=== PATIENT | male | born 1960 | race Caucasian/White ===

== ENCOUNTER 2022-09-22 11:44 | Inpatient (IN) | payer OTHER, SELFPAY ==
[2022-09-22] VITALS (31 sets, daily range): BP systolic 152–186; BP diastolic 86–108; PULSE 81–116; RESP 12–29; TEMP 37.2; O2SAT 90–100
--- NOTE | ~2022-09-22 | CT_ITS ---
EXAMINATION: CT chest abdomen pelvis w con DATE: 09/23/2022 20:45 INDICATION: Brain mass. TECHNIQUE: Computed tomography (CT) of the chest, abdomen, and pelvis was performed with 100 mL Omnip aque 350 intravenous contrast. Automated exposure control and iterative reconstruction technique were employed. The dose-length product was 1266.73 mGy-cm. COMPARISON: CT abdomen and pelvis 05/24/2014 FINDINGS: CHEST CT: The lungs demonstrate mild atelectasis. There is marked elevation of right hemidiaphragm. No pleural effusion. The heart size is normal. No pericardial effusion. There is mild thoracic spondylosis. ABDOMEN/PELVIS CT: There are cysts in the liver measuring up to 2.0 cm. There is diffuse hepatic steatosis. The gallblad rosalind, spleen, pancreas, and adrenal glands are normal. There is cortical thinning of the kidneys. Ther e are cysts in the kidneys measuring up to 5 mm on the left. There is a 2 mm stone in right kidney. T here are 6 mm and 2 mm stones in left kidney. The prostate is moderately enlarged. There are brachyth erapy seeds in the prostate. There is diverticulosis of the colon without evidence of diverticulitis. The appendix is not visualized. There are no dilated loops of bowel. There are no pathologically enl arged lymph nodes. There is no free intraperitoneal fluid. There is mild lumbar spondylosis. IMPRESSION: 1. Moderately enlarged prostate with brachytherapy seeds. Reviewed, dictated and finalized at location A. IX INSPECTOR
--- NOTE | ~2022-09-22 | XR_ITS ---
EXAMINATION: XR chest 1V portable DATE: 09/22/2022 13:42 INDICATION: Left hemiparesis. TECHNIQUE: A single frontal view of the chest was obtained. COMPARISON: CT abdomen and pelvis 05/24/2014 FINDINGS: There is mild atelectasis in the lower lung zones. No pleural effusion or pneumothorax. The heart size is normal. IMPRESSION: 1. Mild atelectasis in the lower lung zones. Reviewed, dictated and finalized at location A. UETTE COACH
--- NOTE | ~2022-09-22 | MR_ITS ---
EXAMINATION: MR brain/brain stem wo/w con DATE: 09/23/2022 17:03 INDICATION: Brain mass. TECHNIQUE: Magnetic resonance imaging (MRI) of the brain and brainstem was performed without and with 20 mL MultiHance intravenous contrast. COMPARISON: Head CT 09/22/2021 FINDINGS: Centered in the right parietal lobe, there is a 5.8 x 5.1 cm peripherally enhancing mass wi th small areas of blood products and surrounding vasogenic edema. There is no acute ischemic infarct. There is 8 mm leftward midline shift. The ventricles are not enlarged. The orbits are normal. The pa ranasal sinuses are clear. The mastoid air cells are normal. IMPRESSION: 1. 5.8 cm mass centered in right parietal lobe, which may be glioblastoma or less likely metastatic d isease. 2. 8 mm leftward midline shift. Reviewed, dictated and finalized at location A. LE FINANCIALS CONSULTANT IMPRESSION: 1. 5.8 cm mass centered in right parietal lobe, which may be glioblastoma or le ss likely metastatic disease. 2. 8 mm leftward midline shift.
--- NOTE | ~2022-09-22 | CT_ITS ---
EXAMINATION: CT brain wo con DATE: 09/22/2022 13:42 INDICATION: Left-sided weakness, facial droop TECHNIQUE: Computed tomography (CT) of the head was performed without intravenous contrast. The mA wa s adjusted according to patient size. Iterative reconstruction technique was employed. Exam dose: 68 1.00 mGy-cm total exam DLP. COMPARISON: None FINDINGS: There is a large likely centrally necrotic soft tissue mass measuring up to approximately 5 x 6.3 cm dimension in the right temporal parietal area with surrounding edema, with prominent efface ment of the right lateral ventricle and approximately 5 mm leftward midline shift. Primary brain palma gnancy is considered most likely. No other brain mass lesion is noted. No intracranial hemorrhage. No subdural or epidural hematoma. The orbits are intact. No fracture or bone destruction of the cranial vault. The mastoid air cells and paranasal sinuses are normally developed and aerated. IMPRESSION: Large irregular likely centrally necrotic right temporal parietal mass with surrounding edema, effacement of the right cerebral sulci and lateral right ventricle and up to 5 mm leftward mid line shift. The findings are most suggestive for primary malignant brain neoplasm Reviewed, dictated and finalized at Location A. Reviewed, dictated and finalized at location A. EDITATION MANAGER IMPRESSION: Large irregular likely centrally necrotic right temporal parietal mass with surrounding edema, effacement of the right cerebral sulci and lateral right ventricle and up to 5 mm leftward midline shift. The findings are most s uggestive for primary malignant brain neoplasm
--- NOTE | 2022-09-22 12:03 | ECG_ITS ---
Measurements Intervals [place] Rate: 112 P: 28 VA: 147 QRS: -59 QRSD: 100 T: 62 QT: 313 QTc: 427 Interpretive Statements SINUS TACHYCARDIA LEFT AXIS DEVIATION POOR R WAVE PROGRESSION, ANTERIOR LEADS INFERIOR INFARCT, AGE INDETERMINATE BORDERLINE ST-T WAVE ABNORMALITY- HIGH LATERAL LEADS BASELINE ARTIFACT- I, III, AVR, AVL, AVF, V6 ABNORMAL ECG NO PREVIOUS ECG AVAILABLE FOR COMPARISON Electronically Signed On 09-22-2022 15:50:09 BUILD TECHNICIAN by Deniz Azul D.O.
[2022-09-22 12:49] LABS: Basophils Percent Auto 0.4 % (0.2-1.2); Eosinophils Percent Auto 0.5 % (0-4.4); Hematocrit 45.5 % (42.0-52.0); Hemoglobin 15.8 g/dL (14.0-18.0); Immature Granulocyte Absolute 0.02 K/mm3 (0.00-0.031); Immature Granulocyte Percent A 0.3 % (0-0.5); Lymphocytes Absolute Auto 1.91 K/mm3 (0.9-3.2); Lymphocytes Percent Auto 24.1 % (18.3-44.2); Mean Corpuscular HGB Conc 34.7 g/dl (32-36); Mean Corpuscular Hemoglobin 28.9 pg (26-34); Mean Corpuscular Volume 83.2 fl (80-100); Mean Platelet Volume 9.3 fl (7.4-10.4); Monocytes Absolute Auto 0.6 K/mm3 (0.1-0.6); Monocytes Percent Auto 7.6 % (2.6-8.5); Neutrophils Absolute Auto 5.3 K/mm3 (1.3-6.7); Neutrophils Percent Auto 67.1 % (45.5-73.1); Platelet Count Result 310 k/mm3 (150-375); Red Blood Count 5.47 M/mm3 (4.6-6.20); Red Cell Distribution Width 14.2 % (11.5-14.5); White Blood Count 7.9 K/mm3 (4.5-10.0)
[2022-09-22 13:02] LABS: Alanine Aminotransferase 24 U/L (6-50); Albumin Level 4.8 g/dL (3.5-5.1); Alkaline Phosphatase 103 U/L (38-126); Anion Gap 15 mmol/L (8-16); Aspartate Amino Transferase 27 U/L (17-59); Bilirubin,Total 0.7 mg/dL (0.2-1.3); Blood Urea Nitrogen 13 mg/dL (9-20); Calcium 9.6 mg/dL (8.4-10.2); Carbon Dioxide 26 mmol/L (22-30); Chloride 99 mmol/L (98-107); Estimated CRCL calculation 100 ml/min; Estimated Glomerular Filt Rate > 60; Glucose 104 mg/dL (65-110); Potassium 3.3 mmol/L (3.4-5.0); Sodium 140 mmol/L (137-145)
[2022-09-22 13:05] LABS: Prothrombin Time 12.8 Seconds (11.1-14.7)
[2022-09-22 13:06] LABS: Partial Thromboplastin Time 26.9 SECONDS (22.3-36.8)
[2022-09-22 13:12] LABS: Troponin I < 0.012 ng/mL (0.000-0.034)
--- NOTE | 2022-09-22 14:33 | ED.NEUROSD ---
HPI - Neuro Symptoms/Deficit General Chief Complaint: Neuro Symptoms/Deficit <Rohan Avila III, DO - Last Filed: 09/22/22 22:12> Stated Complaint: Stroke like symptoms x2 weeks <Rohan Landver STUART, DO - Last Filed: 09/22/22 22:12> Time Seen by Provider: 09/22/22 13:27 <Rohan Avila III, DO - Last Filed: 09/22/22 22:12> History of Present Illness HPI Narrative: Pt presents with left arm weakness for a weak and right sided SERRANO. Pt denies left leg weakness. Pt says he is dropping cup with left hand and is not coordinated. <Rohan Avila III, DO - Last Filed: 09/22/22 22:12> Related Data Home Medications: Home Medications Medication Instructions Recorded Confirmed amlodipine 10 mg tablet 10 mg PO DAILY 09/23/22 09/23/22 valsartan 320 mg tablet 320 mg PO DAILY 09/23/22 09/23/22 <Rohan Avila III, DO - Last Filed: 09/22/22 22:12> Allergies/Adverse Reactions: Allergies Allergy/AdvReac Type Severity Reaction Status Date / Time No Known Allergies Allergy Verified 09/22/22 17:37 <Rohan Landver STUART, DO - Last Filed: 09/22/22 22:12> Review of Systems Review of Systems: All systems reviewed & are unremarkable except as noted in HPI and below <Rohan Landver STUART, DO - Last Filed: 09/22/22 22:12> [facility] Past Medical History Medical History: Medical History (Updated 09/23/22 @ 16:56 by Manohar Salazar M.D.) Hypertension Prostate cancer Treated with radiation <Rohan Landver III, DO - Last Filed: 09/22/22 22:12> Surgical History Surgical History: Surgical History (Updated 09/23/22 @ 13:48 by Rena Dsouza NP) No pertinent past surgical history <Rohan Landver III, DO - Last Filed: 09/22/22 22:12> Family History Family History: Family History (Updated 09/23/22 @ 13:49 by Rena Dsouza NP) Father Prostate carcinoma Mother Hypertension <Rohan Malik Avila III, DO - Last Filed: 09/22/22 22:12> Social History Social History: Social History (Updated 09/23/22 @ 13:56 by Rena Dsouza NP) Social History: The patient is and lives with his . He is originally from [facility]. He speaks broken Comoran He has 2 sons. He works for [employer]. His is the durable power collections attorney for healthcare. The patient is a lifelong nonsmoker. Occasionally has a beer. No marijuana or illicit drugs. Code status full code Smoking status: Never smoker Alcohol intake: never Substance use: never Lack of Transportation: No Lack of Food: Never True Current Housing: I Have Housing Concerned About Future Housing: No Difficulty Paying Gas/Electric Bills: No Difficulty Paying for Meds: No Currently Unemployed: YES Education: Decline to Answer Difficulty w/ Childcare or Family Care: No Spiritual care concerns: No <Rohan Malik Avila III, DO - Last Filed: 09/22/22 22:12> Exam Const: General: healthy appearing and no acute distress <Rohan Malik Avila III, DO - Last Filed: 09/22/22 22:12> Nutritional Appearance: well nourished <Rohan Malik Avila III, DO - Last Filed: 09/22/22 22:12> Orientation/consciousness: patient oriented x3 <Rohan Malik Avila III, DO - Last Filed: 09/22/22 22:12> Limitations: no limitations <Rohan Malik Avila III, DO - Last Filed: 09/22/22 22:12> HENMT: Head: normal to inspection <Rohan Malik Avila III, DO - Last Filed: 09/22/22 22:12> Eyes: Conjunctivae: conjunctivae normal <Rohan Malik Avila III, DO - Last Filed: 09/22/22 22:12> Pupils: Equal, round and reactive pupils present <Rohan Malik Avila III, DO - Last Filed: 09/22/22 22:12> EOM: EOMs intact bilaterally <Rohan Malik Avila III, DO - Last Filed: 09/22/22 22:12> Neck: Neck: normal visual inspection, no lymphadenopathy and no meningeal signs <Rohan Malik Avila III, DO - Last Filed: 09/22/22 22:12> Resp: Effort & Inspection: normal respiratory effort <Rohan Malik Avila III, DO - Last Filed: 1
[2022-09-22 15:00] LABS: SARS-CoV-2 RNA PCR Negative
[2022-09-22] MEDS: levETIRAcetam 500MG/NACL 100ML 500 MG/100 ML BAG 400 MG IVPB (16:45)
--- NOTE | 2022-09-22 20:47 | PC.NURSE ---
called [facility] transfer center for bed status check. Patient is on the wait list but no bed available yet.
[2022-09-23] VITALS (45 sets, daily range): BP systolic 135–177; BP diastolic 76–91; PULSE 71–108; RESP 13–24; TEMP 36.5–36.7; O2SAT 92–98
--- NOTE | 2022-09-23 07:12 | PC.NURSE ---
Report given to TAINA Traylor.
--- NOTE | 2022-09-23 07:28 | PC.NURSE ---
Patient report received from TAINA Velazquez. All questions answered and care of patient assumed. Patient resting in stretcher with eyes closed. Respirations regular and non-labored. VSS. Call-light within reach and at bedside. Awaiting transfer to [place] for neurosurgery. Will contact [facility] transfer line for update.
--- NOTE | 2022-09-23 07:46 | PC.NURSE ---
Spoke to [facility] Capacity Management Department regarding patient transfer. Updated set of VS provided as requested. There are still no available beds. They are hopeful that there will be discharges today. Will update patient, animal care assistant and EDP.
--- NOTE | 2022-09-23 08:56 | PHAR ---
The patient's home meds of Amlodipine 10mg and Valsartan 160mg have been verified.
--- NOTE | 2022-09-23 09:25 | PC.NURSE ---
Dr. Blakely at bedside to assess pt.
[2022-09-23] MEDS: levETIRAcetam 500 MG TABLET PO ×2 (10:50→21:51)
--- NOTE | 2022-09-23 13:18 | ADMGEN ---
This patient, Lennox Solis, was admitted to Medical Room 246-01. Patient/family oriented to hospital policies and general routines including ID bracelet, bed and alarms, visiting hours, pain management, procedures, bathroom and other care routines, personal items, smoking policy, room service/diet, and visiting hours. Information on how to activate the Rapid Response Team has been discussed. Patient/Family are encouraged to report perceived risks to care and to ask questions if they do not understand what they are told or what they should do.
--- NOTE | 2022-09-23 13:35 | PM.IMHP ---
H&P: HPI History of Present Illness Date/Time: 09/23/22 13:35 Chief Complaint: neuro deficit Narrative: This is a 61-year-old male patient who has a history of prostate cancer and hypertension. The patient has a left-sided droop and weakness to left arm. His speech is clear. The patient is awaiting a bed at [facility]. He will need to be evaluated by the neurosurgeon there. It was explained to me that it maybe 3 or 4 days before he can get bed at [facility]. Head CT was read as the followingLarge irregular likely centrally necrotic right temporal parietal mass with surrounding edema, effacement of the right cerebral sulci and lateral right ventricle and up to 5 mm leftward midline shift. The findings are most suggestive for primary malignant brain neoplasm. Per ER noteEmergency Course: ? ? ? discussed with dr willingham who accept for dr leatha govea, said to hold on steroids, can give keppra 500 mg, transfer center will call with bed.? Pt stable awaiting transfer to [place]no bed available at [facility] at this time, will be admitted to our facility until bed availability. The patient was given IV Keppra in the emergency room. The patient is being admitted to inpatient status on the date of service of 09/23/2022. Review of Systems Review of Systems: See HPI All systems reviewed & are unremarkable except as noted in HPI and below Constitutional: Constitutional: Reports as per HPI and Reports no additional constitutional complaints Eyes: Eyes: Reports as per HPI and Reports no additional eye complaints ENT: Reports system reviewed and no additional complaints, except as documented and Reports Normal hearing present Cardiovascular: Cardiovascular: Reports no additional cardiovascular complaints Respiratory: Respiratory: Reports no additional respiratory complaints and Reports no additional respiratory complaints Gastrointestinal: Gastrointestinal: Reports as per HPI and Reports no additional gastrointestinal complaints Musculoskeletal: Musculoskeletal: Reports no additional musculoskeletal complaints Integumentary/Breasts: Skin/Breast: Reports system reviewed and no additional complaints, except as docu and Reports as per HPI Neurologic: Reports system reviewed and no additional complaints, except as documented, Reports as per HPI and Reports Normal hearing present Psychiatric: Psychiatric: Reports no additional psychiatric complaints and Reports as per HPI Endocrine: Endocrine: Reports no additional endocrine complaints Hematologic/Lymphatic: Hematologic/Lymphatic: Reports no additional hematologic/lymphatic complaints Allergic/Immunologic: Allergic/Immunologic: Reports no additional allergic/immunologic complaints PMFSH Past Medical History Medical History (Updated 09/23/22 @ 13:47 by Rena Dsouza NP) Hypertension Prostate cancer Treated with radiation Surgical History Surgical History (Updated 09/23/22 @ 13:48 by Rena Dsouza NP) No pertinent past surgical history Family History Family History (Updated 09/23/22 @ 13:49 by Rena Dsouza NP) Father Prostate carcinoma Mother Hypertension Social History Social History (Updated 09/23/22 @ 13:56 by Rena Dsouza NP) Social History: The patient is and lives with his . He is originally from [facility]. He speaks broken Lithuanian He has 2 sons. He works for [id number]. His is the durable power tax attorney for healthcare. The patient is a lifelong nonsmoker. Occasionally has a beer. No marijuana or illicit drugs. Code status full code Meds Home Medications and Allergies Home Medications Medication Instructions Recorded Confirmed Type amlodipine 10 mg tablet 10 mg PO DAILY 09/23/22 09/23/22 History valsartan 320 mg tablet 320 mg PO DAILY 09/23/22 09/23/22 History Allergies Allergy/AdvReac Type Severity Reaction Status Date / Time No Known Allergies Allergy Verified 09/22/22 17:37 Vital Signs Vital Signs - 2
--- NOTE | 2022-09-23 16:41 | WPDNEUROSGCN ---
Assessment and Plan Assessment and plan (1) Malignant neoplasm of brain: Code(s): C71.9 - Malignant neoplasm of brain, unspecified Status: Acute Plan Assessment: The patient presents at this time with a large right hemispheric centrally necrotic mass. This has the imaging characteristics of a primary glial neoplasm although other malignant lesions cannot be ruled out such as metastatic disease or lymphoma. He has a left upper extremity and left facial paresis. A recommendations: I have recommended he move forward with the MRI of his brain with and without contrast. A CT scan of the chest, abdomen, and pelvis may be useful in ruling out a metastatic lesion. Given the mass effect, I suspect that a craniotomy and resection is going to be indicated. I I also informed him that there is a good chance that medical therapy and radiation therapy may be indicated as well. His just arrived as I am dictating this note and I am going to discuss this with her in detail as well. Apparently, arrangements have been made for a transfer at some point to [facility]. I think this is a reasonable option. After reviewing his MRI of the brain and observing him carefully it may be possible to discharge him home and continue to make arrangements for treatment while he is an outpatient. It may be possible to make arrangements to care for him at a facility where my partners and I can treat him if the patient and his family desire. A 65 minutes were spent in the activities documented in this note. Greater than 50% of the time was spent [id number] with the patient and his . Review of Systems Review of Systems: His review of systems is otherwise unremarkable. He has not had recent problems with fevers, chills, sweats, excessive weight change, chest pain, shortness of breath, abdominal pain, nausea, vomiting, diarrhea, blood in the stool or urine. [facility] Past Medical History Medical History (Updated 09/23/22 @ 16:56 by Manohar Salazar M.D.) Hypertension Prostate cancer Treated with radiation Surgical History Surgical History (Updated 09/23/22 @ 13:48 by Rena Dsouza NP) No pertinent past surgical history Family History Family History (Updated 09/23/22 @ 13:49 by Rena Dsouza NP) Father Prostate carcinoma Mother Hypertension Social History Social History (Updated 09/23/22 @ 13:56 by Rena Dsouza NP) Social History: The patient is and lives with his . He is originally from [facility]. He speaks broken Slovenian He has 2 sons. He works for [employer]. His is the durable power jtac for healthcare. The patient is a lifelong nonsmoker. Occasionally has a beer. No marijuana or illicit drugs. Code status full code Smoking status: Never smoker Alcohol intake: never Substance use: never Lack of Transportation: No Lack of Food: Never True Current Housing: I Have Housing Concerned About Future Housing: No Difficulty Paying Gas/Electric Bills: No Difficulty Paying for Meds: No Currently Unemployed: YES Education: Decline to Answer Difficulty w/ Childcare or Family Care: No Spiritual care concerns: No Meds Home Medications and Allergies Home Medications Medication Instructions Recorded Confirmed Type amlodipine 10 mg tablet 10 mg PO DAILY 09/23/22 09/23/22 History valsartan 320 mg tablet 320 mg PO DAILY 09/23/22 09/23/22 History Allergies Allergy/AdvReac Type Severity Reaction Status Date / Time No Known Allergies Allergy Verified 09/22/22 17:37 Vital Signs Vital Signs - 24 hr 09/22/22 17:05 09/22/22 18:31 09/22/22 22:49 Temperature Pulse Rate 102 H 100 92 Respiratory Rate 18 16 16 Blood Pressure 166/100 H 171/86 H 161/99 H Pulse Oximetry 96 98 97 09/23/22 03:27 09/22/22 23:13 09/22/22 23:15 Temperature Pulse Rate 77 104 H 87 Respiratory Rate 29 H 12 Blood Pressure Pulse Oximetry 09/22/22 23:30 1
[2022-09-23] MEDS: DEXAMETHASONE 4 MG TABLET PO ×3 (17:35→23:48)
[2022-09-23] MEDS: ACETAMINOPHEN 325 MG TABLET 650 MG PO (19:02)
[2022-09-24 05:41] VITALS: BP 131/66; PULSE 87; RESP 18; TEMP 36.9; O2SAT 97
[2022-09-24 05:53] LABS: Alanine Aminotransferase 24 U/L (6-50); Albumin Level 4.5 g/dL (3.5-5.1); Alkaline Phosphatase 84 U/L (38-126); Anion Gap 11 mmol/L (8-16); Aspartate Amino Transferase 31 U/L (17-59); Bilirubin,Total 0.7 mg/dL (0.2-1.3); Blood Urea Nitrogen 16 mg/dL (9-20); Calcium 9.3 mg/dL (8.4-10.2); Carbon Dioxide 25 mmol/L (22-30); Chloride 100 mmol/L (98-107); Estimated CRCL calculation 100 ml/min; Estimated Glomerular Filt Rate > 60; Glucose 139 mg/dL (65-110); Potassium 3.6 mmol/L (3.4-5.0); Sodium 136 mmol/L (137-145)
[2022-09-24 06:17] LABS: Basophils Percent Auto 0.2 % (0.2-1.2); Hemoglobin 15.4 g/dL (14.0-18.0); Immature Granulocyte Absolute 0.02 K/mm3 (0.00-0.031); Immature Granulocyte Percent A 0.4 % (0-0.5); Lymphocytes Absolute Auto 0.72 K/mm3 (0.9-3.2); Lymphocytes Percent Auto 12.8 % (18.3-44.2); Mean Corpuscular HGB Conc 34.2 g/dl (32-36); Mean Corpuscular Hemoglobin 29.4 pg (26-34); Mean Corpuscular Volume 85.9 fl (80-100); Mean Platelet Volume 9.4 fl (7.4-10.4); Monocytes Percent Auto 0.7 % (2.6-8.5); Neutrophils Absolute Auto 4.8 K/mm3 (1.3-6.7); Neutrophils Percent Auto 85.9 % (45.5-73.1); Platelet Count Result 322 k/mm3 (150-375); Red Blood Count 5.24 M/mm3 (4.6-6.20); Red Cell Distribution Width 14.3 % (11.5-14.5); White Blood Count 5.6 K/mm3 (4.5-10.0)
[2022-09-24] MEDS: DEXAMETHASONE 4 MG TABLET PO (06:48)
--- NOTE | 2022-09-24 08:28 | PM.IMPN ---
Progress Note: A&P Assessment and Plan (1) Brain tumor: Code(s): D49.6 - Neoplasm of unspecified behavior of brain Status: Acute Assessment and Plan: Continue Decadron and Keppra per Neurosurgery recommendations, appreciate their consultation and management (2) Left arm weakness: Code(s): R29.898 - Other symptoms and signs involving the musculoskeletal system Status: Acute Assessment and Plan: Stable, unsure if this is due to his chronic pain related to the new brain tumor (3) Hypertension: Code(s): I10 - Essential (primary) hypertension Status: Acute Assessment and Plan: Stable (4) Hepatic steatosis: Code(s): K76.0 - Fatty (change of) liver, not elsewhere classified Status: Acute Assessment and Plan: Noted on CT scan Plan DVT prophylaxis with SCDs GI prophylaxis with PPI Code status full code Subjective Date/time seen: 09/24/22 08:28 Objective Data Vital Signs Vital Signs: Vital Signs - 24 hr 09/23/22 09:08 09/23/22 08:30 09/23/22 08:55 Temperature Pulse Rate 92 89 90 Respiratory Rate 16 22 H 17 Blood Pressure 177/90 H Pulse Oximetry 97 97 09/23/22 09:00 09/23/22 09:08 09/23/22 09:15 Temperature Pulse Rate 90 93 106 H Respiratory Rate 17 16 24 H Blood Pressure 177/90 H Pulse Oximetry 98 09/23/22 09:36 09/23/22 09:47 09/23/22 10:12 Temperature Pulse Rate 91 89 93 Respiratory Rate 16 16 18 Blood Pressure Pulse Oximetry 09/23/22 10:32 09/23/22 10:45 09/23/22 11:00 Temperature Pulse Rate 104 H 92 Respiratory Rate 17 13 Blood Pressure Pulse Oximetry 09/23/22 11:36 09/23/22 11:46 09/23/22 12:01 Temperature Pulse Rate 90 88 97 Respiratory Rate 14 16 22 H Blood Pressure Pulse Oximetry 09/23/22 12:15 09/23/22 13:48 09/23/22 21:38 Temperature 98.0 F 97.7 F Pulse Rate 90 108 H 87 Respiratory Rate 19 18 18 Blood Pressure 162/87 H 165/91 H Pulse Oximetry 96 97 09/24/22 05:41 Temperature 98.4 F Pulse Rate 87 Respiratory Rate 18 Blood Pressure 131/66 Pulse Oximetry 97 Intake/Output Intake/Output: Intake & Output 09/21/22 09/22/22 09/23/22 09/24/22 23:59 23:59 23:59 23:59 Intake Total 100 240 Balance 100 240 Meds/Results Medications: Active Medications Generic Name Dose Route Start Last Admin Trade Name Freq PRN Reason Stop Dose Admin Acetaminophen 650 mg 09/23/22 18:37 09/23/22 19:02 Acetaminophen 325 Mg Tablet PO 650 mg Q4H PRN Administration Pain Amlodipine Besylate 10 mg 09/24/22 09:00 Amlodipine Besylate 5 Mg Tablet PO DAILY JENI Dexamethasone 4 mg 09/24/22 07:00 09/24/22 06:48 Dexamethasone 4 Mg Tablet PO 4 mg Q8H JENI Administration Levetiracetam 500 mg 09/23/22 09:35 09/23/22 21:51 Levetiracetam 500 Mg Tablet PO 500 mg Q12HR JENI Administration Ondansetron HCl 4 mg 09/23/22 09:52 Ondansetron Inj 4 Mg/2 Ml Vial IV PUSH Q4H PRN Nausea Valsartan 320 mg 09/24/22 09:00 Valsartan 160 Mg Tablet PO 10/24/22 08:59 DAILY JENI Radiology Results: ITS Impressions Head CT 09/22/22 13:45 IMPRESSION: Large irregular likely centrally necrotic right temporal parietal mass with surrounding edema, effacement of the right cerebral sulci and lateral right ventricle and up to 5 mm leftward midline shift. The findings are most suggestive for primary malignant brain neoplasm Chest X-Ray 09/22/22 13:46 IMPRESSION: 1. Mild atelectasis in the lower lung zones. Brain MRI 09/23/22 17:07 IMPRESSION: 1. 5.8 cm mass centered in right parietal lobe, which may be glioblastoma or less likely metastatic disease. 2. 8 mm leftward midline shift. Chest/Abdomen/Pelvis CT 09/23/22 20:51 IMPRESSION: 1. Moderately enlarged prostate with brachytherapy seeds. Labs Labs: Laboratory Results - last 24 hr 09/24/22 09/24/22 04:58 04:
--- NOTE | 2022-09-24 08:42 | WPDNEURCNPN ---
Assessment and Plan Assessment and plan (1) Brain tumor: Code(s): D49.6 - Neoplasm of unspecified behavior of brain Status: Acute Plan Mr. Edward is a 71 year old male with a history of prostate cancer presenting with LUE and left facial weakness, found to have large R hemisphereic mass with central necrosis, concerning for malignancy (primary vs metastatic). - Agree with Keppra 500mg BID - Neurosurgery is involved, patient is pending transfer to [facility] Consult date: 09/24/22 Time Seen: 08:42 Reason for consult: Brain mass HPI: Lennox Solis is a 61 year old male with a history of prostate cancer who presented due to left arm weakness and right sided headache. He presented to [place] ED where he had a CT head that showed a large irregular centrally necrotic R temporal parietal mass with surrounding edema and 5mm midline shift. MRI brain w/wo contrast obtained which confirmed 5.8 cm mass in the R parietal lobe with 8mm midline shift. Patient was evaluated by Neurosurgery and is pending transfer to [facility] for further management. He is currently receiving decadron and has been started on Keppra 500mg BID empirically. No concerns for seizures. [facility] Past Medical History Medical History (Updated 09/24/22 @ 08:36 by Martine Lomeli DO) Diverticulosis Hepatic steatosis Hypertension Lumbar spondylosis Prostate cancer Treated with radiation Surgical History Surgical History (Updated 09/23/22 @ 13:48 by Rena Dsouza NP) No pertinent past surgical history Family History Family History (Updated 09/23/22 @ 13:49 by Rena Dsouza NP) Father Prostate carcinoma Mother Hypertension Social History Social History (Updated 09/23/22 @ 13:56 by Rena Dsouza NP) Social History: The patient is and lives with his . He is originally from [facility]. He speaks broken Swazi He has 2 sons. He works for [employer]. His is the durable power claims attorney for healthcare. The patient is a lifelong nonsmoker. Occasionally has a beer. No marijuana or illicit drugs. Code status full code Smoking status: Never smoker Alcohol intake: never Substance use: never Lack of Transportation: No Lack of Food: Never True Current Housing: I Have Housing Concerned About Future Housing: No Difficulty Paying Gas/Electric Bills: No Difficulty Paying for Meds: No Currently Unemployed: YES Education: Decline to Answer Difficulty w/ Childcare or Family Care: No Spiritual care concerns: No Meds Home Medications and Allergies Home Medications Medication Instructions Recorded Confirmed Type amlodipine 10 mg tablet 10 mg PO DAILY 09/23/22 09/23/22 History valsartan 320 mg tablet 320 mg PO DAILY 09/23/22 09/23/22 History Allergies Allergy/AdvReac Type Severity Reaction Status Date / Time No Known Allergies Allergy Verified 09/22/22 17:37 Vital Signs Vital Signs - 24 hr 09/23/22 09:08 09/23/22 08:55 09/23/22 09:00 Temperature Pulse Rate 92 90 90 Respiratory Rate 16 17 17 Blood Pressure 177/90 H Pulse Oximetry 97 09/23/22 09:08 09/23/22 09:15 09/23/22 09:36 Temperature Pulse Rate 93 106 H 91 Respiratory Rate 16 24 H 16 Blood Pressure 177/90 H Pulse Oximetry 98 09/23/22 09:47 09/23/22 10:12 09/23/22 10:32 Temperature Pulse Rate 89 93 104 H Respiratory Rate 16 18 Blood Pressure Pulse Oximetry 09/23/22 10:45 09/23/22 11:00 09/23/22 11:36 Temperature Pulse Rate 92 90 Respiratory Rate 17 13 14 Blood Pressure Pulse Oximetry 09/23/22 11:46 09/23/22 12:01 09/23/22 12:15 Temperature Pulse Rate 88 97 90 Respiratory Rate 16 22 H 19 Blood Pressure Pulse Oximetry 09/23/22 13:48 09/23/22 21:38 09/24/22 05:41 Temperature 36.7 C 36.5 C 36.9 C Pulse Rate 108 H 87 87 Respiratory Rate 18 18 18 Blood Pressure 162/87 H 165/91 H 131/66 Pulse Oximetry 96 97 97 Results Labs CBC & Chem 7:
[2022-09-24] MEDS: levETIRAcetam 500 MG TABLET PO (09:15)
--- NOTE | 2022-09-24 09:22 | PC.NURSE ---
Do not give BP medications until cleared by neuro or hospitalist. Medications not on hold in MAR, see provider communication assessment
--- NOTE | 2022-09-24 09:27 | PM.DS ---
DS: Admitting Diagnosis Discharge Date August 24, 2022 Admitting Diagnosis Weakness DS: Discharge Diagnosis Discharge Diagnosis (1) Brain tumor: Code(s): D49.6 - Neoplasm of unspecified behavior of brain Status: Acute Assessment and Plan: Continue Decadron and Keppra per Neurosurgery recommendations, appreciate their consultation and management (2) Left arm weakness: Code(s): R29.898 - Other symptoms and signs involving the musculoskeletal system Status: Acute Assessment and Plan: Stable, unsure if this is due to his chronic pain related to the new brain tumor (3) Hypertension: Code(s): I10 - Essential (primary) hypertension Status: Acute Assessment and Plan: Stable (4) Hepatic steatosis: Code(s): K76.0 - Fatty (change of) liver, not elsewhere classified Status: Acute Assessment and Plan: Noted on CT scan Plan DVT prophylaxis with SCDs GI prophylaxis with PPI Code status full code DS: Summary Hospital Course Hospital Course: 61-year-old male with past medical history significant for prostate cancer and hypertension is presenting to the ER with left-sided facial droop and weakness to his left arm. In the ER, was found to a necrotic temporoparietal mass with edema and mass effect well as a midline shift suggestive of malignant neoplasm. Therefore, transfer was arranged to [place] for neuro surgical intervention. However, there were no beds available, so the patient was admitted to our facility. When speaking with Neurosurgery at [place], they recommended seizure prophylaxis with Keppra 500 mg twice daily and holding off on steroids. After ordering a brain MRI as well as CT abdomen, chest and pelvis, our nurse surgery team recommended Decadron and monitoring overnight. Patient's symptoms remained stable and unchanged, therefore, patient will be discharged on Decadron and Keppra with close outpatient follow-up by Neurosurgery next week. 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 Will likely need craniotomy and resection with and or without radiation per neurosurgery consultation. Goal will be to keep blood pressure below systolic of 160, but otherwise, okay for some permissive hypertension. Therefore, patient will hold his Norvasc and continue valsartan, check blood pressures regularly, goal is to keep blood pressure below 160 but no need to go significantly lower than that. Time Spent with Patient Time attestation: Total time spent providing and/or coordinating discharge services: DS: Data Data Completed and Pending Labs on day of discharge: Labs from last 24 hours 09/24/22 09/24/22 04:58 04:58 WBC 5.6 RBC 5.24 Hgb 15.4 Hct 45.0 MCV 85.9 MCH 29.4 MCHC 34.2 RDW 14.3 Plt Count 322 MPV 9.4 Immature Gran % (Auto) 0.4 Neut % (Auto) 85.9 H Lymph % (Auto) 12.8 L Crockett % (Auto) 0.7 L Eos % (Auto) 0.0 Baso % (Auto) 0.2 Lymph # (Auto) 0.72 L Crockett # (Auto) 0.0 L Eos # (Auto) 0.0 Baso # (Auto) 0.0 Abs Immat Gran (auto) 0.02 Absolute Neuts (auto) 4.8 Absolute Nucleated RBC 0.0 Nucleated RBC % 0.0 Sodium 136 L Potassium 3.6 Chloride 100 Carbon Dioxide 25 Anion Gap 11 BUN 16 Creatinine 0.90 Estim Creat Clear Calc 100 Estimated GFR > 60 Glucose 139 H Calcium 9.3 Total Bilirubin 0.7 AST 31 ALT 24 Alkaline Phosphatase 84 Total Protein 8.0 Albumin 4.5 Discharge Plan Discharge Attending physician on discharge: Martine Lomeli Consulting providers: Yamilet Mcgarry ; Collin Cuellar Discharging Clinician: Martine Lomeli Patient Disposition: Home, Self-Care Activity: as tolerated Diet: as tolerated Stand Alone Forms: General Discharge Information Follow-up/Referrals: Timmy,DO Demetri [Primary Care Provider] - Collin Cuellar MD [Physician] - Discharge Medicatio
[2022-09-24] MEDS: PANTOPRAZOLE 40 MG TABLET PO (10:42)
--- NOTE | 2022-09-24 11:04 | PC.NURSE ---
On 09/24/22, the student, [Helga Weber], provided care and completed [facility] documentation on this patient. I have reviewed the student's documentation and agree with the findings.
== END 2022-09-24 11:59 | disposition home or self-care (01) | DRG 55 ==
LOC: ANHED 09-23 09:34 → ANH2MED 09-23 12:39
PROVIDERS: Emergency Medicine; Nurse Practitioner; Admitting Provider Student in an Organized Health Care Education/Training Program; Emergency Provider Emergency Medicine; PCP Student in an Organized Health Care Education/Training Program; Visit Provider Student in an Organized Health Care Education/Training Program
DX: C71.0 Malignant neoplasm of cerebrum, except lobes and ventricles (principal); R29.810 Facial weakness; R29.898 Other symptoms and signs involving the musculoskeletal system; I10 Essential (primary) hypertension; C61 Malignant neoplasm of prostate; K76.0 Fatty (change of) liver, not elsewhere classified; Z20.822 Contact with and (suspected) exposure to COVID-19
CPT/HCPCS: 36415; 70450; 70553; 71045; 71260; 74177; 80053; 84484; 85025; 85610; 85730; 93005; 99285; A9270; A9577; J1953; J8540; Q9967; U0003; U0005